=== PATIENT | male | born 1980 | race Caucasian/White ===

== ENCOUNTER 2024-03-19 01:43 | Emergency (ER) | payer SELFPAY ==
[~2024-03-19] VITALS: Ht 177.8 cm; Wt 115.9 kg
[2024-03-19 02:56] LABS: BASO # 0.1 K/mm3 (0.0-0.2); BASO % 1.2 % (0.0-2.0); EOS # 0.1 K/mm3 (0.0-0.7); EOS % 2.8 % (0.0-4.0); GRAN % 46.9 % (42.2-75.2); HEMATOCRIT 41.3 % (42.0-52.0); HEMOGLOBIN 14.7 g/dl (13.5-18.0); LYMPH # 1.9 K/mm3 (1.2-3.4); LYMPH % 44.4 % (20.0-51.0); MEAN CELL VOLUME 90 fl (80.0-100.0); MEAN CORPUSCULAR HEMOGLOBIN 32 pg (27-31); MEAN CORPUSCULAR HGB CONC 36 g/dl (33.0-37.0); MEAN PLATELET VOLUME 10.7 fl (7.4-10.4); MONO # 0.2 K/mm3 (0.1-0.6); MONO % 4.7 % (1.7-9.3); PLATELET COUNT 286 K/mm3 (130-400); RED BLOOD COUNT 4.57 M/mm3 (4.20-5.60); REDCELL DISTRIBUTION WIDTH-CV 12.9 % (11.5-14.5)
[2024-03-19 03:06] LABS: ALANINE AMINOTRANSFERASE 23 U/L (0-55); ALBUMIN 3.7 g/dL (3.5-5.0); ALCOHOL(ethanol),MEDICAL 203 mg/dL (0-10); ALKALINE PHOSPHATASE 80 U/L (40-150); ANION GAP 14 mmol/L (7-16); AST,SGOT 56 U/L (5-34); BILIRUBIN,TOTAL 0.6 mg/dL (0.2-1.2); CALCIUM 8.9 mg/dL (8.4-10.2); CHLORIDE 109 mEq/L (98-107); CREATININE, serum 0.85 mg/dL (0.72-1.25); GLUCOSE 77 mg/dL (70-99); POTASSIUM 3.5 mEq/L (3.5-4.5); SODIUM 144 mEq/L (136-145); TOTAL PROTEIN 8.2 g/dl (6.2-8.1)
[2024-03-19 03:07] LABS: BLOOD UREA NITROGEN < 5 mg/dL (9-21); SALICYLATE < 5.0 mg/dL (15.0-30.0)
[2024-03-19 04:59] LABS: COLLECTION METHOD CLEAN CATCH
[2024-03-19 05:03] LABS: URINE APPEARANCE CLEAR (CLEAR/HAZY); URINE BLOOD NEGATIVE (NEGATIVE); URINE COLOR YELLOW (YELLOW); URINE GLUCOSE NEGATIVE (NEGATIVE); URINE KETONE TRACE (NEGATIVE); URINE NITRATE NEGATIVE (NEGATIVE); URINE PROTEIN(semi-quant) NEGATIVE (NEGATIVE); URINE UROBILINOGEN 0.2 E.U/dL (0.2-1.0)
[2024-03-19 05:14] LABS: TRICYCLIC ANTIDEPRESS URINE NEGATIVE (NEGATIVE)
[2024-03-19] MEDS ORDERED: KLONOPIN 1MG1 MG PO (07:12)
[2024-03-19] MEDS ORDERED: CELEXA 20MG20 MG/TAB PO (07:13)
[2024-03-19] MEDS ORDERED: PRIL40 PO (07:13)
[2024-03-19 12:00] VITALS: BP 141/86; TEMP 98.5
[2024-03-19 15:32] VITALS: PULSE 110
== END 2024-03-19 15:32 | disposition home or self-care (01) ==
LOC: COL.ER 01:43
PROVIDERS: Physician Assistant
DX: F32.A Depression, unspecified (principal); R45.851 Suicidal ideations; Z79.899 Other long term (current) drug therapy